=== PATIENT | female | born 1955 | race Two or more races ===

== ENCOUNTER 2017-12-09 09:39 | Outpatient (CLI) | payer OTHER ==
[~2017-12-09] VITALS: Ht 154.9 cm; Wt 77.6 kg
== END 2017-12-09 10:00 | disposition home or self-care (01) ==
LOC: OFIC 805 09:39
DX: J34.2 Deviated nasal septum (principal); H02.403 Unspecified ptosis of bilateral eyelids; J32.8 Other chronic sinusitis